=== PATIENT | male | born 1945 | race Caucasian/White ===

== ENCOUNTER 2021-01-22 12:23 | Inpatient (IN) ==
[2021-01-22] MEDS ORDERED: SODIUM CHLORIDE 0.9% 500 ML IV STA (13:04)
[2021-01-22] MEDS ORDERED: ONDANSETRON INJ 2 MG/ML 2 ML VIAL IV STA (13:04)
[2021-01-22] MEDS: MoRPHine SULFATE 4 MG/ML 1 ML CARP\\VIAL IV PRN ×2 (13:25→14:39)
--- NOTE | 2021-01-22 13:28 | Emergency Department Note ---
Impression & Plan Intractable back pain, Acute left flank pain ED Provider Note NAME: WILVER BURCIAGA AGE: 75 SEX: M : 1945 ARRIVES VIA: Walk-In INFORMANT: Patient, ED PROVIDER(S): Parminder Montero DO CHIEF COMPLAINT: Flank pain HPI: The patient is a 75-year-old male who presented to the emergency department with his significant other for an evaluation of flank pain. The patient describes flank pain which has been ongoing for the last few weeks. The pain became much worse over the last 48 hours. He notices the pain mostly in his lef t flank into his left hip. He denies having any mid back pain. He denies having any recent trauma. The patient is a history of lumbar disc disease and thought that could be the cause of his symptoms. He denies having any fever. He denies having any dysuria or frequency. He denies having any hematuria. The patient does not have a history of kidney stones. He is not been seen by his family doctor. He was going to call his back specialist but his pain became worse so he presented to the emergency department today. ROS: See above HPI for pertinent positives & negatives. A total of 10 systems reviewed and were otherwise negative. PAST MEDICAL HISTORY: See Below PAST SURGICAL HISTORY: See Below FAMILY HISTORY: See Below SOCIAL HISTORY: See Below HOME MEDICATIONS: See Below ALLERGIES: See Below VITALS: See Below PHYSICAL EXAMINATION: GENERAL: The patient is awake and alert. The patient is very anxious appearing and appears to be uncomfortable. EYES: The conjunctivae are clear. The pupils are round and reactive. EARS, NOSE, MOUTH AND THROAT: The nose is without any evidence of any deformity. NECK: The neck is nontender and supple. RESPIRATORY: Normal respiratory effort is noted there is no evidence of wheezing rhonchi or rales CARDIOVASCULAR: Regular rate and rhythm noted there no murmurs rubs or gallops normal S1 normal S2. GASTROINTESTINAL: The abdomen is soft. Abdomen is nontender. BACK: No midline tenderness was noted. There was left CVA tenderness to percussion. Patient has decreased range of motion secondary to pain. MUSCULOSKELETAL/EXTREMITIES: There is no evidence of gross deformity full range of motion is noted in the hips and shoulders. SKIN: There is no obvious evidence of any rash. There are no petechiae, pallor or cyanosis noted. NEUROLOGIC: Patient is awake alert and oriented x3 strength is symmetric patellar reflexes are 2+ bilaterally MEDICAL DECISION MAKING: The patient is a 75-year-old male who presented to the emergency department for an evaluation of back pain. The patient had acute onset of left flank pain. He also appears to have some reproducible pain over the left flank as well as lumbar spine. The patient was neurologically intact. He does have a history of lumbar disc disease in the past. The patient was treated with IV pain medication in the emergency department. He was reevaluated multiple times. He continues to have very severe pain. For this reason I [facility] have agreed to evaluate the patient in the emergency department for further management and disposition. Triage Nursing notes reviewed. Prior medical records reviewed Vital Signs: reviewed and remarkable for hypertension and tachycardia. Differential diagnosis: Renal colic, UTI, appendicitis, diverticulitis, mesenteric ischemia, aortic pathology, infections, inflammatory bowel disease, PUD, biliary pathology, as well as other pathologies. ER treatment provided: See below Diagnostics interpreted by me: ECG: none Cardiac Monitoring: An order was placed for continuous cardiac monitoring. The monitor shows a rate 97 bpm with sinus rhythm. Laboratory studies: As stated above and show below. Imaging studies: See below Consultation(s): I discussed this patient with Janae crawford who [facility] will [facility] the patient. Past Med/Surg History Medical History CAD (coronary artery disease) Dyslipidemia HTN (hypertension) Surgical History History of carpal tunnel surgery History of cholecystectomy History of tonsillectomy S/P CABG x 2 S/P left knee arthroscopy Family History Mother Heart disease Social History Smoking Status: Former smoker Tobacco Type: Cigarettes Hx Alcohol Use: Yes Alcohol type: beer Alcohol Intake Frequency: 4 or More x per/Week Alcohol Intake Frequency Comment: 2 beers/day Hx Substance Use: No Preferred Language: Italian Communication Ability: Effective Brushing Operator Required: No Beliefs That Will Affect Care: None Current Living Situation: Spouse Other Information That Helps Us Care for You: No Feels Safe at Home: Yes Safety Concerns: Feels Safe At This Time Assistive Devices: Glasses Allergies Allergies Allergy/AdvReac Type Severity Reaction Status Date / Time No Known Allergies Allergy Unverified 01/22/21 15:15 Home Meds Home Medications Medication Instructions Recorded Confirmed amlodipine 10 mg tablet 10 mg PO QAM 01/22/21 01/22/21 aspirin 81 mg tablet 81 mg PO DAILY 01/22/21 01/22/21 calcium polycarbophil 625 mg 625 mg PO BID 01/22/21 01/22/21 tablet (Fiber Therapy (ca polycarbophil)) loratadine 10 mg tablet 10 mg PO QAM 01/22/21 01/22/21 metoprolol tartrate 100 mg tablet 50 mg PO BID 01/22/21 01/22/21 quinapril 40 mg tablet 40 mg PO QAM 01/22/21 01/22/21 rosuvastatin 40 mg tablet 40 mg PO HS 01/22/21 01/22/21 Results & Data (ED) Vital Signs Vital Signs - 24 hr 01/22/21 12:26 01/22/21 13:25 01/22/21 14:15 Temperature 36.4 C L Temperature Source Oral Pulse Rate 90 79 85 Pulse Rate [Bilateral Apical] 83 Pulse Rate [Right Finger] Pulse Rate from SpO2 Sensor 84 Pulse Rhythm Regular Regular Pulse Rhythm [Bilateral Apical] Regular Pulse Strength Normal Pulse Strength [Bilateral Apical] Normal Respiratory Rate 20 17 15 Respiratory Effort / Characteristics Non-Labored Spontaneous Non-Labored Spontaneous Respiratory Depth Normal Normal Respiratory Pattern Regular Regular Blood Pressure 172/90 H Blood Pressure [Right Arm] 152/83 H Blood Pressure Mean 117 Blood Pressure Mean [Right Arm] 106 Blood Pressure Position [Right Arm] Lying Pulse Oximetry 98 96 98 Oxygen Delivery Method Room Air Room Air Sepsis Recent Fever Within 48 Hours No Sepsis New/Unexplained Change in Mental Status N/A Sepsis Action Taken by Nursing No Action Required 01/22/21 14:38 01/22/21 15:00 01/22/21 16:00 Temperature Temperature Source Pulse Rate 89 90 Pulse Rate [Bilateral Apical] 87 Pulse Rate [Right Finger] Pulse Rate from SpO2 Sensor 89 90 Pulse Rhythm Pulse Rhythm [Bilateral Apical] Regular Pulse Strength Pulse Strength [Bilateral Apical] Normal Respiratory Rate 17 25 H 16 Respiratory Effort / Characteristics Non-Labored Spontaneous Respiratory Depth Normal Respiratory Pattern Blood Pressure 176/105 H 187/98 H Blood Pressure [Right Arm] 140/76 Blood Pressure Mean 128 127 Blood Pressure Mean [Right Arm] 97 Blood Pressure Position [Right Arm] Lying Pulse Oximetry 94 95 96 Oxygen Delivery Method Room Air Sepsis Recent Fever Within 48 Hours Sepsis New/Unexplained Change in Mental Status Sepsis Action Taken by Nursing 01/22/21 17:00 01/22/21 18:00 01/22/21 18:17 Temperature Temperature Source Pulse Rate 104 H 97 H Pulse Rate [Bilateral Apical] Pulse Rate [Right Finger] Pulse Rate from SpO2 Sensor Pulse Rhythm Pulse Rhythm [Bilateral Apical] Pulse Strength Pulse Strength [Bilateral Apical] Respiratory Rate 18 13 Respiratory Effort / Characteristics Respiratory Depth Respiratory Pattern Blood Pressure 150/85 H Blood Pressure [Right Arm] Blood Pressure Mean 106 Blood Pressure Mean [Right Arm] Blood Pressure Position [Right Arm] Pulse Oximetry 98 Oxygen Delivery Method Room Air Sepsis Recent Fever Within 48 Hours Sepsis New/Unexplained Change in Mental Status Sepsis Action Taken by Nursing 01/22/21 22:24 01/23/21 07:31 Temperature 36.6 C 36.6 C Temperature Source Oral Oral Pulse Rate Pulse Rate [Bilateral Apical] Pulse Rate [Right Finger] 89 105 H Pulse Rate from SpO2 Sensor Pulse Rhythm Pulse Rhythm [Bilateral Apical] Pulse Strength Pulse Strength [Bilateral Apical] Respiratory Rate 16 16 Respiratory Effort / Characteristics Respiratory Depth Normal Respiratory Pattern Blood Pressure Blood Pressure [Right Arm] 128/79 150/76 H Blood Pressure Mean Blood Pressure Mean [Right Arm] 95 100 Blood Pressure Position [Right Arm] Lying Semi-fowlers Pulse Oximetry 96 97 Oxygen Delivery Method Room Air Room Air Sepsis Recent Fever Within 48 Hours Sepsis New/Unexplained Change in Mental Status Sepsis Action Taken by [facility] Medications Current Medication List: was personally reviewed by me Laboratory Data Attestation: I reviewed the patient's lab results. Result diagrams: 01/23/21 05:35 01/23/21 05:35 Lab Results 01/22/21 01/22/21 01/22/21 Range/Units 13:25 13:25 15:07 WBC 8.65 (4.8-10.8) K/uL RBC 5.15 (4.7-6.1) M/uL Hgb 16.5 (14.0-18.0) g/dL Hct 45.2 (42-52) % MCV 87.8 (80-100) fL MCH 32.0 (25-34) pg MCHC 36.5 H (32-36) g/dL RDW Std Deviation 40.7 (36.4-46.3) fL RDW Coeff of Janae 12.6 (11.5-14.5) % Plt Count 219 (130-400) K/uL MPV 9.0 (7.4-10.4) fL Immature Gran % (Auto) 0.6 % Neut % (Auto) 78.0 % Lymph % (Auto) 13.5 % [place] % (Auto) 6.7 % Eos % (Auto) 0.7 % Baso % (Auto) 0.5 % Neut # (Auto) 6.75 H (1.4-6.5) K/uL Lymph # (Auto) 1.17 L (1.2-3.4) K/uL [place] # (Auto) 0.58 (0.11-0.59) K/uL Eos # (Auto) 0.06 (0-0.5) K/uL Baso # (Auto) 0.04 (0-0.2) K/uL Immature Gran # (Auto) 0.05 H (0.00-0.02) K/uL Sodium 134 L (136-145) mmol/L Potassium 3.7 (3.5-5.1) mmol/L Chloride 102 (98-107) mmol/L Carbon Dioxide 20 L (21-32) mmol/L Anion Gap 12.0 H (3-11) BUN 14 (7-18) mg/dl Creatinine 0.96 (0.6-1.4) mg/dl Est Cr Clr Drug Dosing 74.3 ml/min Est GFR ( Amer) 90.5 ml/min Est GFR (Non-Af Amer) 78.1 ml/min BUN/Creatinine Ratio 14.2 (10-20) Glucose 118 H (70-99) mg/dl Calcium 9.3 (8.5-10.1) mg/dl Total Bilirubin 1.7 H (0.2-1) mg/dl AST 19 (15-37) U/L ALT 31 (12-78) U/L Alkaline Phosphatase 69 (45-117) U/L Total Protein 8.1 (6.4-8.2) gm/dl Albumin 4.4 (3.4-5.0) gm/dl Globulin 3.7 (2.5-4.0) gm/dl Albumin/Globulin Ratio 1.2 (0.9-2) Lipase 90 (73-393) U/L Urine Color Yellow Urine Appearance Clear (Clear) Urine pH 7.0 (4.5-7.5) Ur Specific [place] 1.011 (1.000-1.030) Urine Protein Negative (Negative) Urine Glucose (UA) Negative (Negative) Urine Ketones 2+ H (Negative) Urine Blood Negative (Negative) Urine Nitrite Negative (Negative) Urine Bilirubin Negative (Negative) Urine Urobilinogen Negative (Negative) Ur Leukocyte Esterase Negative (Negative) COVID-19 Eval Order SARS-CoV-2 (PCR) (Negative) 01/22/21 01/22/21 01/23/21 Range/Units 16:01 16:01 05:35 WBC 6.28 (4.8-10.8) K/uL RBC 4.91 (4.7-6.1) M/uL Hgb 15.3 (14.0-18.0) g/dL Hct 42.5 (42-52) % MCV 86.6 (80-100) fL MCH 31.2 (25-34) pg MCHC 36.0 (32-36) g/dL RDW Std Deviation 40.4 (36.4-46.3) fL RDW Coeff of Janae 12.6 (11.5-14.5) % Plt Count 216 (130-400) K/uL MPV 8.7 (7.4-10.4) fL Immature Gran % (Auto) % Neut % (Auto) % Lymph % (Auto) % [place] % (Auto) % Eos % (Auto) % Baso % (Auto) % Neut # (Auto) (1.4-6.5) K/uL Lymph # (Auto) (1.2-3.4) K/uL [place] # (Auto) (0.11-0.59) K/uL Eos # (Auto) (0-0.5) K/uL Baso # (Auto) (0-0.2) K/uL Immature Gran # (Auto) (0.00-0.02) K/uL Sodium (136-145) mmol/L Potassium (3.5-5.1) mmol/L Chloride (98-107) mmol/L Carbon Dioxide (21-32) mmol/L Anion Gap (3-11) BUN (7-18) mg/dl Creatinine (0.6-1.4) mg/dl Est Cr Clr Drug Dosing ml/min Est GFR ( Amer) ml/min Est GFR (Non-Af Amer) ml/min BUN/Creatinine Ratio (10-20) Glucose (70-99) mg/dl Calcium (8.5-10.1) mg/dl Total Bilirubin (0.2-1) mg/dl AST (15-37) U/L ALT (12-78) U/L Alkaline Phosphatase (45-117) U/L Total Protein (6.4-8.2) gm/dl Albumin (3.4-5.0) gm/dl Globulin (2.5-4.0) gm/dl Albumin/Globulin Ratio (0.9-2) Lipase (73-393) U/L Urine Color Urine Appearance (Clear) Urine pH (4.5-7.5) Ur Specific [place] (1.000-1.030) Urine Protein (Negative) Urine Glucose (UA) (Negative) Urine Ketones (Negative) Urine Blood (Negative) Urine Nitrite (Negative) Urine Bilirubin (Negative) Urine Urobilinogen (Negative) Ur Leukocyte Esterase (Negative) COVID-19 Eval Order Covid19 at [facility] SARS-CoV-2 (PCR) NEGATIVE (Negative) 01/23/21 Range/Units 05:35 WBC (4.8-10.8) K/uL RBC (4.7-6.1) M/uL Hgb (14.0-18.0) g/dL Hct (42-52) % MCV (80-100) fL MCH (25-34) pg MCHC (32-36) g/dL RDW Std Deviation (36.4-46.3) fL RDW Coeff of Janae (11.5-14.5) % Plt Count (130-400) K/uL MPV (7.4-10.4) fL Immature Gran % (Auto) % Neut % (Auto) % Lymph % (Auto) % [place] % (Auto) % Eos % (Auto) % Baso % (Auto) % Neut # (Auto) (1.4-6.5) K/uL Lymph # (Auto) (1.2-3.4) K/uL [place] # (Auto) (0.11-0.59) K/uL Eos # (Auto) (0-0.5) K/uL Baso # (Auto) (0-0.2) K/uL Immature Gran # (Auto) (0.00-0.02) K/uL Sodium 133 L (136-145) mmol/L Potassium 4.2 (3.5-5.1) mmol/L Chloride 102 (98-107) mmol/L Carbon Dioxide 22 (21-32) mmol/L Anion Gap 9.0 (3-11) BUN 15 (7-18) mg/dl Creatinine 0.69 (0.6-1.4) mg/dl Est Cr Clr Drug Dosing 103.4 ml/min Est GFR ( Amer) 109.2 ml/min Est GFR (Non-Af Amer) 94.2 ml/min BUN/Creatinine Ratio 21.7 H (10-20) Glucose 126 H (70-99) mg/dl Calcium 8.4 L (8.5-10.1) mg/dl Total Bilirubin (0.2-1) mg/dl AST (15-37) U/L ALT (12-78) U/L Alkaline Phosphatase (45-117) U/L Total Protein (6.4-8.2) gm/dl Albumin (3.4-5.0) gm/dl Globulin (2.5-4.0) gm/dl Albumin/Globulin Ratio (0.9-2) Lipase (73-393) U/L Urine Color Urine Appearance (Clear) Urine pH (4.5-7.5) Ur Specific [place] (1.000-1.030) Urine Protein (Negative) Urine Glucose (UA) (Negative) Urine Ketones (Negative) Urine Blood (Negative) Urine Nitrite (Negative) Urine Bilirubin (Negative) Urine Urobilinogen (Negative) Ur Leukocyte Esterase (Negative) COVID-19 Eval Order SARS-CoV-2 (PCR) (Negative) Administered Medications Acetaminophen (Acetaminophen 325 Mg Tab) 650 mg PO Q6H MARLENY Stop: 02/21/21 18:59 Last Admin: 01/23/21 06:03 Dose: 650 mg Documented by: [id number] Admin: 01/23/21 00:28 Dose: 650 mg Documented by: [id number] Admin: 01/22/21 20:00 Dose: 650 mg Documented by: [id number] Diazepam (Diazepam 2 Mg Tablet) 2 mg PO BID PRN PRN Reason: pain Stop: 02/21/21 18:47 Last Admin: 01/22/21 20:51 Dose: 2 mg Documented by: [id number] Enoxaparin Sodium (Enoxaparin Inj 40 Mg/0.4 Ml Syr) 40 mg SQ Q24H MARLENY Stop: 02/21/21 18:59 Last Admin: 01/22/21 20:01 Dose: 40 mg Documented by: [id number] Oxycodone HCl (Oxycodone Hcl Ir 5 Mg Tab (Immediate Release)) 5 mg PO Q6H PRN PRN Reason: Pain Stop: 02/05/21 18:47 Last Admin: 01/22/21 23:08 Dose: 5 mg Documented by: [id number] Discontinued Medications Cyclobenzaprine HCl (Cyclobenzaprine Hcl 10 Mg Tab) 10 mg PO NOW STA Stop: 01/22/21 15:11 Last Admin: 01/22/21 15:13 Dose: 10 mg Documented by: [id number] Dexamethasone Sodium Phosphate (DexamethasonePf 10 Mg/Ml Vial) 10 mg IV NOW ONE Stop: 01/22/21 15:55 Last Admin: 01/22/21 16:00 Dose: 10 mg Documented by: [id number] Diazepam (Diazepam 2 Mg Tablet) 2 mg PO NOW ONE Stop: 01/22/21 16:42 Last Admin: 01/22/21 17:09 Dose: 2 mg Documented by: [id number] Hydromorphone HCl (Hydromorphone Inj 1 Mg/Ml Syringe) 1 mg IV Q15M PRN PRN Reason: Pain Stop: 02/05/21 15:09 Last Admin: 01/22/21 15:16 Dose: 1 mg Documented by: [id number] Sodium Chloride (Nss) 500 mls @ 999 mls/hr IV .Q31M STA Stop: 01/22/21 13:34 Last Infusion: 01/22/21 15:04 Dose: 0 mls/hr Documented by: [id number] Admin: 01/22/21 13:41 Dose: 999 mls/hr Documented by: [id number] Ketorolac Tromethamine (Ketorolac Tromethamine 15 Mg/Ml Vial) 15 mg IV NOW ONE Stop: 01/22/21 16:42 Last Admin: 01/22/21 17:09 Dose: 15 mg Documented by: [id number] Morphine Sulfate (Morphine Sulfate 4 Mg/Ml 1 Ml Carp\Vial) 4 mg IV Q15M PRN PRN Reason: Pain Stop: 02/05/21 13:03 Last Admin: 01/22/21 14:39 Dose: 4 mg Documented by: [id number] Admin: 01/22/21 13:25 Dose: 4 mg Documented by: [id number] Ondansetron HCl (Ondansetron Inj 2 Mg/Ml 2 Ml Vial) 4 mg IV NOW STA Stop: 01/22/21 13:05 Last Admin: 01/22/21 13:39 Dose: 4 mg Documented by: [id number] Imaging Data Radiologist's Impression: Lumbar Spine MRI 01/22/21 16:41 MR lumbar spine wo con CLINICAL HISTORY: intractable back pain. Left-sided low back pain COMPARISON: None. TECHNIQUE: Multiplanar multisequence images of the Lumbar Spine were performed without contrast. FINDINGS: There is evidence for an old anterior wedge deformity of the superior endplate of L5. However, there is mild subchondral marrow edema of the margin of the superior endplate with findings characteristic of a mild acute compression deformity superimposed on an old compression fracture. The heights of the remaining lumbar vertebral bodies are maintained. The vertebral bodies are in anatomic alignment. Homogeneous marrow signal is seen throughout the remainder of the lumbar spine with no other evidence for marrow edema or marrow replacement. T12-L1: The disc space height is maintained. There are no focal disc protrusions or extrusions identified. The thecal sac and epidural fat are maintained. The neural foramen are patent bilaterally. There is no evidence for nerve root encroachment. The facet joints are within normal limits. L1-2: The disc space height is maintained. There are no focal disc protrusions or extrusions identified. The thecal sac and epidural fat are maintained. The neural foramen are patent bilaterally. There is no evidence for nerve root encroachment. The facet joints are within normal limits. L2-3: There is mild disc space narrowing and disc desiccation with diffuse bulging of the annulus measuring 3 mm. There are no focal disc protrusions or extrusions identified. However, there is flattening of thecal sac anteriorly and asymmetric encroachment upon the left neural foramen when compared to the right. Thickening of ligamentum flavum is also present bilaterally and the combination of these findings produce mild to moderate central canal stenosis and left foraminal stenosis. However, no definite nerve root encroachment is seen within the neural foramen. Moderate hypertrophic facet joint disease is seen bilaterally. L3-4: There is mild disc space narrowing and disc desiccation with mild diffuse bulging of the annulus measuring 2 mm. There are no focal disc protrusions or extrusions identified. Only minimal flattening of thecal sac is seen anteriorly. The neural foramen are patent bilaterally. There is no evidence for nerve root encroachment. The facet joints are within normal limits. L4-5: There is mild disc space narrowing. There are no focal disc protrusions or extrusions identified. The thecal sac and epidural fat are maintained. The neural foramen are patent bilaterally. There is no evidence for nerve root encroachment. Mild to moderate hypertrophic facet joint disease is seen bilaterally. L5-S1: There is disc desiccation with mild central bulging of the annulus. There are no focal disc protrusions or extrusions identified. Due to the increased amount of epidural fat anterior to the thecal sac at this level, no encroachment upon the thecal sac is seen. There is moderate to marked hyper trophic facet joint disease seen bilaterally. There is mild encroachment upon the neural foramen bilaterally. However, no focal nerve root impingement is identified. 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 IMPRESSION: 1. 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 However, no focal nerve root impingement is seen within the neural foramen. 2. Bulging annuli are also seen at L3-for L4-5. 3. Hypertrophic facet joint disease is seen at the lower 2 disc space levels as well. ACT 112: Negative or not required by law. Electronically signed by: Brendan More M.D. 01/23/2021 10:14 AM Discharge Plan Visit Data Chief Complaint: Back Injury/Pain Stated Complaint: BACK PAIN ED Provider: Parminder Montero Discharge Problem: Intractable back pain, Acute left flank pain Patient Disposition: Admitted As Inpatient Discharge Instructions Interventions: ED Discharge Assessment Last Done: 01/22/21 18:17
[2021-01-22 13:38] LABS: Basophils # (auto) 0.04 K/uL (0-0.2); Basophils % (auto) 0.5 %; Eosinophils # (auto) 0.06 K/uL (0-0.5); Eosinophils % (auto) 0.7 %; Hematocrit (blood only) 45.2 % (42-52); Hemoglobin 16.5 g/dL (14.0-18.0); Immature Granulocytes # (auto) 0.05 K/uL (0.00-0.02); Immature Granulocytes % (auto) 0.6 %; Lymphocytes # (auto) 1.17 K/uL (1.2-3.4); Lymphocytes % (auto) 13.5 %; Mean Corpuscular Hgb Conc 36.5 g/dL (32-36); Mean Corpuscular Volume 87.8 fL (80-100); Monocytes # (auto) 0.58 K/uL (0.11-0.59); Monocytes % (auto) 6.7 %; Neutrophils # (auto) 6.75 K/uL (1.4-6.5); Platelet Count 219 K/uL (130-400); RDW Coefficient of Variation 12.6 % (11.5-14.5); RDW Standard Deviation 40.7 fL (36.4-46.3); Red Blood Count 5.15 M/uL (4.7-6.1); White Blood Count 8.65 K/uL (4.8-10.8)
[2021-01-22 13:55] LABS: Albumin Level 4.4 gm/dl (3.4-5.0); BUN Creatinine Ratio 14.2 (10-20); Calcium 9.3 mg/dl (8.5-10.1); Creatinine Clr Calc Pharmacy 74.3 ml/min; Est GFR (African American) 90.5 ml/min; Est GFR (Non-African American) 78.1 ml/min; Potassium 3.7 mmol/L (3.5-5.1)
[2021-01-22 13:58] LABS: Albumin Globulin Ratio 1.2 (0.9-2); Bilirubin,Total 1.7 mg/dl (0.2-1); Globulin 3.7 gm/dl (2.5-4.0); Total Protein 8.1 gm/dl (6.4-8.2)
--- NOTE | 2021-01-22 14:15 | CT Scan Report ---
CT OF THE ABDOMEN AND PELVIS WITHOUT CONTRAST CLINICAL HISTORY: Left flank pain. COMPARISON STUDY: No previous studies for comparison. TECHNIQUE: Axial images of the abdomen and pelvis were obtained without IV contrast. Images were revi ewed in the axial, sagittal, and coronal planes. Automated exposure control was utilized for the vitaliy dy. A dose lowering technique was utilized adhering to the principles of ALARA. FINDINGS: Visualized portions of the lower chest demonstrate right pleural thickening which contains calcifications. This is chronic. No pneumatosis, free air or portal venous gas is present. No renal, ureteral or bladder calculi are present. There is no hydronephrosis or hydroureter. Prostate is moder ately enlarged. Evaluation the remainder of the abdomen and pelvis is suboptimal on this unenhanced e xamination. There is no biliary ductal dilatation status post cholecystectomy. There is a splenule. U nenhanced images of the spleen, adrenal glands and pancreas are unremarkable. There is no peripancrea tic infiltration. There is no pancreatic ductal dilatation. Colonic diverticulosis is noted without e vidence for acute diverticulitis. There is no evidence for a bowel obstruction. Appendix is normal. T here is no lymphadenopathy or ascites. Concavity of the superior endplate of L5 with moderate loss of vertebral body height is likely chronic. Moderate multilevel degenerative changes within lumbar spin e are suboptimally assessed by CT. No acute lumbar spine fracture is identified. IMPRESSION: 1. No urinary calculi or hydronephrosis. 2. No acute process within the abdomen or pelvis on unenhanced exam. 3. Colonic diverticulosis without evidence for acute diverticulitis. ACT 112: Negative or not required by law. Electronically signed by: Govind Fleming M.D. 01/22/2021 2:14 PM
[2021-01-22] MEDS ORDERED: HYDROmorphone INJ 1 MG/ML SYRINGE IV PRN (15:10)
[2021-01-22] MEDS ORDERED: CYCLOBENZAPRINE HCL 10 MG TAB PO STA (15:10)
[2021-01-22 15:23] LABS: Appearance Urine Clear (Clear); Bilirubin Urine Negative (Negative); Blood Urine Negative (Negative); Color Urine Yellow; Glucose Urine UA Negative (Negative); Ketones Urine 2+ (Negative); Leukocyte Esterase Urine Negative (Negative); Nitrite Urine Negative (Negative); Protein Urine Negative (Negative); Specific Gravity Urine 1.011 (1.000-1.030); Urobilinogen Urine Negative (Negative)
[2021-01-22] MEDS ORDERED: dexAMETHasone**PF** 10 MG/ML VIAL IV ONE (15:54)
[2021-01-22] MEDS ORDERED: diazePAM 2 MG TABLET PO ONE (16:41)
[2021-01-22] MEDS ORDERED: KETOROLAC TROMETHAMINE 15 MG/ML VIAL IV ONE (16:41)
--- NOTE | 2021-01-22 17:38 | History & Physical Report ---
Date of Service January 22, 2021 Assessment & Plan (1) Intractable back pain: Plan: -Admit to [facility] -Patient presenting from home with reports of worsening left-sided low back pain over the past few weeks -In the ED, CT ABD/pelvis unremarkable for acute findings. Patient received multiple doses of pain medication and continues to have intractable pain. -No red flag symptoms -Lumbar spine MRI -Pending MRI results, Ortho vs. pain management consult -Pain control with scheduled Tylenol, PRN Valium and Toradol (giving doses now) and oxycodone (2) HTN (hypertension): Plan: -BP elevated, likely situational secondary to pain -Continue home doses of amlodipine, metoprolol, quinapril and reevaluate once pain has been controlled (3) CAD (coronary artery disease): Plan: -Appears stable, no reports of chest pain -Continue ASA, statin, beta-regine (4) DVT prophylaxis: Plan: -SQ Lovenox History of Present Illness Chief Complaint: Back pain Primary Care Provider: Conner Ceron MD 75-year-old male with PMH CAD s/p CABG x3 in 2001, HTN, dyslipidemia, and other problems to below who presents to the ED for evaluation of intractable back pain. Patient reports that he was working on the floor attempting to fix his pellet stove a few weeks ago, and the next morning he woke up with a left-sided low back pain. He reports pain has progressively gotten worse over the past few weeks. Reports some intermittent left calf and left foot tingling. Denies left lower extremity weakness. No difficulty with bowel or bladder function. Patient describes the pain as sharp and grabbing at times. He has been taking Tylenol without relief. Patient denies fevers and chills. No chest pain or shortness of breath. Denies lightheadedness, dizziness, diaphoresis, syncopal events. No abdominal pain, nausea, vomiting, diarrhea. Denies urinary symptoms. In the ED, CT ABD/pelvis is unremarkable for acute findings. Labs unremarkable. Patient was given p.o. cyclobenzaprine, IV dexamethasone 10 mg, IV Dilaudid 1 mg, IV morphine 4 mg x 2 doses, IV Zofran, IVF. Patient continues to have intractable pain. Allergies Allergy/AdvReac Type Severity Reaction Status Date / Time No Known Allergies Allergy Unverified 01/22/21 15:15 Home Medications Medication Instructions Recorded Confirmed Type amlodipine 10 mg tablet 10 mg PO QAM 01/22/21 01/22/21 History aspirin 81 mg tablet 81 mg PO DAILY 01/22/21 01/22/21 History calcium polycarbophil 625 mg 625 mg PO BID 01/22/21 01/22/21 History tablet (Fiber Therapy (ca polycarbophil)) loratadine 10 mg tablet 10 mg PO QAM 01/22/21 01/22/21 History metoprolol tartrate 100 mg tablet 50 mg PO BID 01/22/21 01/22/21 History quinapril 40 mg tablet 40 mg PO QAM 01/22/21 01/22/21 History rosuvastatin 40 mg tablet 40 mg PO HS 01/22/21 01/22/21 History Past Med/Surg History Medical History CAD (coronary artery disease) Dyslipidemia HTN (hypertension) Surgical History History of carpal tunnel surgery History of cholecystectomy History of tonsillectomy S/P CABG x 2 S/P left knee arthroscopy Family History Mother Heart disease Social History Smoking Status: Former smoker Tobacco Type: Cigarettes Hx Alcohol Use: Yes Alcohol type: beer Alcohol Intake Frequency: 4 or More x per/Week Alcohol Intake Frequency Comment: 2 beers/day Feels Safe at Home: Yes Review of Systems Review of Systems: ROS per HPI, all other systems reviewed and negative Physical Exam Constitutional: WD/WN, vitals as above Eyes: PERRL, conjunctivae normal, anicteric sclerae ENMT: external ear and nose normal, oropharynx normal Respiratory: normal respiratory effort, lungs clear to auscultation Cardiovascular: Rate/Rhythm: regular rate and regular rhythm Vessels: normal peripheral pulses Extremities: no edema Gastrointestinal (Abdomen): normal bowel sounds, soft, nontender, no hepatos plenomegaly Musculoskeletal: no cyanosis or clubbing, extremities motor strength 5/5 Tenderness over left SI joint Skin: no rashes, warm and dry Neurologic: PERRL, EOMI, accommodation nl, no face palsy, no dysarthria Psychiatric: A+Ox3, euthymic affect Results & Data Results & Data ([facility]) Vital Signs (Past 12 Hours) Vital Signs Temp Pulse Pulse Resp BP BP Pulse Ox 01/22/21 16:00 90 16 187/98 H 96 01/22/21 15:00 89 25 H 176/105 H 95 01/22/21 14:38 87 17 140/76 94 01/22/21 14:15 85 15 98 01/22/21 13:25 79 83 17 152/83 H 96 01/22/21 12:26 36.4 C L 90 20 172/90 H 98 Laboratory Results Short CBC 01/22/21 Range/Units 13:25 WBC 8.65 (4.8-10.8) K/uL Hgb 16.5 (14.0-18.0) g/dL Hct 45.2 (42-52) % Plt Count 219 (130-400) K/uL BMP 01/22/21 13:25 Sodium 134 L Potassium 3.7 Chloride 102 Carbon Dioxide 20 L BUN 14 Creatinine 0.96 Glucose 118 H Calcium 9.3 Liver Function 01/22/21 Range/Units 13:25 Total Bilirubin 1.7 H (0.2-1) mg/dl AST 19 (15-37) U/L ALT 31 (12-78) U/L Alkaline Phosphatase 69 (45-117) U/L Albumin 4.4 (3.4-5.0) gm/dl Urine 01/22/21 Range/Units 15:07 Urine Color Yellow Urine Appearance Clear (Clear) Urine pH 7.0 (4.5-7.5) Ur Specific [place] 1.011 (1.000-1.030) Urine Protein Negative (Negative) Urine Glucose (UA) Negative (Negative) Diagnostic Findings Abdomen/Pelvis CT 01/22/21 13:04 CT OF THE ABDOMEN AND PELVIS WITHOUT CONTRAST CLINICAL HISTORY: Left flank pain. COMPARISON STUDY: No previous studies for comparison. TECHNIQUE: Axial images of the abdomen and pelvis were obtained without IV contrast. Images were reviewed in the axial, sagittal, and coronal planes. Automated exposure control was utilized for the study. A dose lowering technique was utilized adhering to the principles of ALARA. FINDINGS: Visualized portions of the lower chest demonstrate right pleural thickening which contains calcifications. This is chronic. No pneumatosis, free air or portal venous gas is present. No renal, ureteral or bladder calculi are present. There is no hydronephrosis or hydroureter. Prostate is moderately enlarged. Evaluation the remainder of the abdomen and pelvis is suboptimal on this unenhanced examination. There is no biliary ductal dilatation status post cholecystectomy. There is a splenule. Unenhanced images of the spleen, adrenal glands and pancreas are unremarkable. There is no peripancreatic infiltration. There is no pancreatic ductal dilatation. Colonic diverticulosis is noted without evidence for acute diverticulitis. There is no evidence for a bowel obstruction. Appendix is normal. There is no lymphadenopathy or ascites. Concavity of the superior endplate of L5 with moderate loss of vertebral body height is likely chronic. Moderate multilevel degenerative changes within lumbar spine are suboptimally assessed by CT. No acute lumbar spine fracture is identified. IMPRESSION: 1. No urinary calculi or hydronephrosis. 2. No acute process within the abdomen or pelvis on unenhanced exam. 3. Colonic diverticulosis without evidence for acute diverticulitis. ACT 112: Negative or not required by law. Electronically signed by: Govind Fleming M.D. 01/22/2021 2:14 PM Code Status & VTE Plan VTE Prophylaxis Plan VTE Prophylaxis will be ordered: Yes Supervising Physician Co-Signing Physician Notes 75-year-old male with PMH of chronic low back pain, CAD s/p CABG x3 in 2001, HTN, dyslipidemia, and arthritis status post steroid injection into multiple joints presents to our ED 01/22 for evaluation of intractable back pain -ongoing for a month, worsening since last 1 week associated with occasional numbness in his left foot sole. Has tried Tylenol but not any NSAID. No problem with bowel or bladder, no recent trauma history. No fever. No history of cancer in self, smoked 12 to 14 years with an average of less than 1 packs a day, quit in 1981, consumes 2-3 beers daily since 47 years, with short period off abstinence. No use of recreational drugs. Patient advised to avoid alcohol cessation and its benefit. Will watch for any withdrawal symptoms. No history of withdrawal seizures in the past. Pain management, MRI lumbar spine. Resume home meds for hypertension, IV hydralazine as needed for SBP greater than 170 mmHg. Upon examination: GENERAL: Alert and oriented x3. NAD, on RA. HEENT: No pallor, no icterus. Pupils equal, round and reactive to light. Oral mucosa moist. NECK: No JVD, no neck masses. HEART: S1 and S2 heard. Regular rate and rhythm. Likely systolic murmur over aortic and pulmonic area, no gallop. RESPIRATORY SYSTEM: Normal AP diameter. No accessory muscle use. No wheezing, no crackles. ABDOMEN: Soft, bowel sounds present, nontender, no distention. CENTRAL NERVOUS SYSTEM: Alert and oriented x3. No facial droop. Speech is clear. Obeys simple commands. Moves extremities. EXTREMITIES: No edema, no erythema seen. Straight leg raise test: Negative Low back and left hip palpation: Some tenderness over posterior iliac crest. No costovertebral angle tenderness noted. I have seen and examined the patient and have discussed the case with the provider above. I agree with the assessment and plan as stated.
[2021-01-22] MEDS ORDERED: hydrALAZINE HCL 20 MG/ML VIAL IV PRN (17:48)
[2021-01-22] MEDS ORDERED: KETOROLAC TROMETHAMINE 15 MG/ML VIAL IV PRN (18:48)
[2021-01-22] MEDS ORDERED: oxyCODONE HCL IR 5 MG TAB (IMMEDIATE RELEASE) PO PRN (18:48)
[2021-01-22] MEDS ORDERED: ONDANSETRON INJ 2 MG/ML 2 ML VIAL IV PRN (18:48)
[2021-01-22] MEDS: ACETAMINOPHEN 325 MG TAB PO SCH (20:00)
[2021-01-22] MEDS: ENOXAPARIN INJ 40 MG/0.4 ML SYR SQ SCH (20:01)
[2021-01-22] MEDS: diazePAM 2 MG TABLET PO PRN (20:51)
[2021-01-23] MEDS: ACETAMINOPHEN 325 MG TAB PO SCH ×4 (00:28→19:31)
[2021-01-23 05:51] LABS: Hematocrit (blood only) 42.5 % (42-52); Hemoglobin 15.3 g/dL (14.0-18.0); Mean Corpuscular Hemoglobin 31.2 pg (25-34); Mean Corpuscular Volume 86.6 fL (80-100); Mean Platelet Volume 8.7 fL (7.4-10.4); Platelet Count 216 K/uL (130-400); RDW Coefficient of Variation 12.6 % (11.5-14.5); RDW Standard Deviation 40.4 fL (36.4-46.3); Red Blood Count 4.91 M/uL (4.7-6.1); White Blood Count 6.28 K/uL (4.8-10.8)
[2021-01-23 06:27] LABS: BUN Creatinine Ratio 21.7 (10-20); Calcium 8.4 mg/dl (8.5-10.1); Creatinine Clr Calc Pharmacy 103.4 ml/min; Est GFR (African American) 109.2 ml/min; Est GFR (Non-African American) 94.2 ml/min; Potassium 4.2 mmol/L (3.5-5.1)
--- NOTE | 2021-01-23 10:15 | Magnetic Resonance Report ---
MR lumbar spine wo con CLINICAL HISTORY: intractable back pain. Left-sided low back pain COMPARISON: None. TECHNIQUE: Multiplanar multisequence images of the Lumbar Spine were performed without contrast. FINDINGS: There is evidence for an old anterior wedge deformity of the superior endplate of L5. However, there is mild subchondral marrow edema of the margin of the superior endplate with findings characteristic of a mild acute compression deformity superimposed on an old compression fracture. The heights of the remaining lumbar vertebral bodies are maintained. The vertebral bodies are in anatomic alignment. Ho mogeneous marrow signal is seen throughout the remainder of the lumbar spine with no other evidence f or marrow edema or marrow replacement. T12-L1: The disc space height is maintained. There are no focal disc protrusions or extrusions ident ified. The thecal sac and epidural fat are maintained. The neural foramen are patent bilaterally. Th ere is no evidence for nerve root encroachment. The facet joints are within normal limits. L1-2: The disc space height is maintained. There are no focal disc protrusions or extrusions identi fied. The thecal sac and epidural fat are maintained. The neural foramen are patent bilaterally. The re is no evidence for nerve root encroachment. The facet joints are within normal limits. L2-3: There is mild disc space narrowing and disc desiccation with diffuse bulging of the annulus me asuring 3 mm. There are no focal disc protrusions or extrusions identified. However, there is liz ening of thecal sac anteriorly and asymmetric encroachment upon the left neural foramen when compared to the right. Thickening of ligamentum flavum is also present bilaterally and the combination of the se findings produce mild to moderate central canal stenosis and left foraminal stenosis. However, no definite nerve root encroachment is seen within the neural foramen. Moderate hypertrophic facet joint disease is seen bilaterally. L3-4: There is mild disc space narrowing and disc desiccation with mild diffuse bulging of the annul us measuring 2 mm. There are no focal disc protrusions or extrusions identified. Only minimal liz ening of thecal sac is seen anteriorly. The neural foramen are patent bilaterally. There is no eviden ce for nerve root encroachment. The facet joints are within normal limits. L4-5: There is mild disc space narrowing. There are no focal disc protrusions or extrusions identif ied. The thecal sac and epidural fat are maintained. The neural foramen are patent bilaterally. Ther e is no evidence for nerve root encroachment. Mild to moderate hypertrophic facet joint disease is se en bilaterally. L5-S1: There is disc desiccation with mild central bulging of the annulus. There are no focal disc protrusions or extrusions identified. Due to the increased amount of epidural fat anterior to the th ecal sac at this level, no encroachment upon the thecal sac is seen. There is moderate to marked hype rtrophic facet joint disease seen bilaterally. There is mild encroachment upon the neural foramen maria elena aterally. However, no focal nerve root impingement is identified. 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 IMPRESSION: 1. 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 However, no focal nerve root impingement is seen wi thin the neural foramen. 2. Bulging annuli are also seen at L3-for L4-5. 3. Hypertrophic facet joint disease is seen at the lower 2 disc space levels as well. ACT 112: Negative or not required by law. Electronically signed by: Brendan More M.D. 01/23/2021 10:14 AM
--- NOTE | 2021-01-23 13:51 | Hospitalist Progress Note ---
Date of Service January 23, 2021 Assessment & Plan (1) Intractable back pain: Plan: -Patient presented from home with reports of worsening left-sided low back pain over the past few weeks -In the ED, CT ABD/pelvis unremarkable for acute findings. Patient received mu ltiple doses of pain medication and continued to have intractable pain. -No red flag symptoms -Pain improved today with scheduled Tylenol and as needed Valium, Toradol, oxycodone -Lumbar spine MRI results as noted below -Spine Ortho consult -Continue scheduled Tylenol, as needed Valium, Toradol, oxycodone (2) HTN (hypertension): Plan: -BP elevated on presentation likely situational secondary to pain - now improved -Continue home doses of amlodipine, metoprolol, quinapril -As needed hydralazine ordered, no doses required (3) CAD (coronary artery disease): Plan: -Appears stable, no reports of chest pain -Continue ASA, statin, beta-regine (4) DVT prophylaxis: Plan: -SQ Lovenox Admission and Anticipated Discharge Date Admission Date: January 23, 2021 Supervising Physician Co-Signing Physician Notes 75-year-old male with PMH of chronic low back pain, CAD s/p CABG x3 in 2001, HTN, dyslipidemia, and arthritis status post steroid injection into multiple joints presents to our ED 01/22 for evaluation of intractable back pain -ongoing for a month, worsening since last 1 week associated with occasional numbness in his left foot sole. Has tried Tylenol but not any NSAID. No problem with bowel or bladder, no recent trauma history. No fever. No history of cancer in self, smoked 12 to 14 years with an average of less than 1 packs a day, quit in 1981, consumes 2-3 beers daily since 47 years, with short period of abstinence. No u se of recreational drugs. Patient advised to avoid alcohol cessation and its benefit. Will watch for any withdrawal symptoms. No history of withdrawal seizures in the past. 01/23 MRI lumbar spine showed degenerative disc and degenerative facet joint disease at L2-3 with mild to moderate central canal stenosis and asymmetric left foraminal stenosis. Continue pain management, await orthopedic consult. Upon examination: GENERAL: Alert and oriented x3. NAD, on RA. HEENT: No pallor, no icterus. Pupils equal, round and reactive to light. Oral mucosa moist. NECK: No JVD, no neck masses. HEART: S1 and S2 heard. Regular rate and rhythm. Likely systolic murmur over aortic and pulmonic area, no gallop. RESPIRATORY SYSTEM: Normal AP diameter. No accessory muscle use. No wheezing, no crackles. ABDOMEN: Soft, bowel sounds present, nontender, no distention. CENTRAL NERVOUS SYSTEM: Alert and oriented x3. No facial droop. Speech is clear. Obeys simple commands. Moves extremities. EXTREMITIES: No edema, no erythema seen. Straight leg raise test: Negative Low back and left hip palpation: Some tenderness over posterior iliac crest. Not clear-cut tenderness. No costovertebral angle tenderness noted. I have seen and examined the patient and have discussed the case with the provider above. I agree with the assessment and plan as stated. Subjective Patient seen examined. Follow-up for intractable back pain Patient reports improvement in back pain since yesterday. Able to stand at the bedside and use a urinal. Denies lower extremity weakness, numbness, tingling. No bowel or bladder dysfunction. Denies chest pain or shortness of breath. No abdominal pain or nausea. Physical Exam Constitutional: WD/WN, vitals as above no acute distress Respiratory: normal respiratory effort, lungs clear to auscultation Cardiovascular: Rate/Rhythm: regular rate and regular rhythm Vessels: normal peripheral pulses Extremities: no edema Gastrointestinal (Abdomen): Percussion/Palpation: abdomen soft; abdomen nontender Musculoskeletal: no cyanosis or clubbing, extremities motor strength 5/5 No point tenderness noted in the lower back Skin: no rashes, warm and dry Neurologic: no focal motor deficits Results & Data Results & Data ([facility]) Vital Signs (Past 12 Hours) Vital Signs Temp Pulse Resp BP Pulse Ox 01/23/21 07:31 36.6 C 105 H 16 150/76 H 97 Laboratory Results Short CBC 01/23/21 Range/Units 05:35 WBC 6.28 (4.8-10.8) K/uL Hgb 15.3 (14.0-18.0) g/dL Hct 42.5 (42-52) % Plt Count 216 (130-400) K/uL BMP 01/22/21 01/23/21 13:25 05:35 Sodium 134 L 133 L Potassium 3.7 4.2 Chloride 102 102 Carbon Dioxide 20 L 22 BUN 14 15 Creatinine 0.96 0.69 Glucose 118 H 126 H Calcium 9.3 8.4 L Liver Function 01/22/21 Range/Units 13:25 Total Bilirubin 1.7 H (0.2-1) mg/dl AST 19 (15-37) U/L ALT 31 (12-78) U/L Alkaline Phosphatase 69 (45-117) U/L Albumin 4.4 (3.4-5.0) gm/dl Urine 01/22/21 Range/Units 15:07 Urine Color Yellow Urine Appearance Clear (Clear) Urine pH 7.0 (4.5-7.5) Ur Specific [place] 1.011 (1.000-1.030) Urine Protein Negative (Negative) Urine Glucose (UA) Negative (Negative) Diagnostic Findings Lumbar Spine MRI 01/22/21 16:41 MR lumbar spine wo con CLINICAL HISTORY: intractable back pain. Left-sided low back pain COMPARISON: None. TECHNIQUE: Multiplanar multisequence images of the Lumbar Spine were performed without contrast. FINDINGS: There is evidence for an old anterior wedge deformity of the superior endplate of L5. However, there is mild subchondral marrow edema of the margin of the superior endplate with findings characteristic of a mild acute compression deformity superimposed on an old compression fracture. The heights of the remaining lumbar vertebral bodies are maintained. The vertebral bodies are in anatomic alignment. Homogeneous marrow signal is seen throughout the remainder of the lumbar spine with no other evidence for marrow edema or marrow replacement. T12-L1: The disc space height is maintained. There are no focal disc protrusions or extrusions identified. The thecal sac and epidural fat are maintained. The neural foramen are patent bilaterally. There is no evidence for nerve root encroachment. The facet joints are within normal limits. L1-2: The disc space height is maintained. There are no focal disc protrusions or extrusions identified. The thecal sac and epidural fat are maintained. The neural foramen are patent bilaterally. There is no evidence for nerve root encroachment. The facet joints are within normal limits. L2-3: There is mild disc space narrowing and disc desiccation with diffuse bulging of the annulus measuring 3 mm. There are no focal disc protrusions or extrusions identified. However, there is flattening of thecal sac anteriorly and asymmetric encroachment upon the left neural foramen when compared to the right. Thickening of ligamentum flavum is also present bilaterally and the combination of these findings produce mild to moderate central canal stenosis and left foraminal stenosis. However, no definite nerve root encroachment is seen within the neural foramen. Moderate hypertrophic facet joint disease is seen bilaterally. L3-4: There is mild disc space narrowing and disc desiccation with mild diffuse bulging of the annulus measuring 2 mm. There are no focal disc protrusions or extrusions identified. Only minimal flattening of thecal sac is seen anteriorly. The neural foramen are patent bilaterally. There is no evidence for nerve root encroachment. The facet joints are within normal limits. L4-5: There is mild disc space narrowing. There are no focal disc protrusions or extrusions identified. The thecal sac and epidural fat are maintained. The neural foramen are patent bilaterally. There is no evidence for nerve root encroachment. Mild to moderate hypertrophic facet joint disease is seen b ilaterally. L5-S1: There is disc desiccation with mild central bulging of the annulus. There are no focal disc protrusions or extrusions identified. Due to the increased amount of epidural fat anterior to the thecal sac at this level, no encroachment upon the thecal sac is seen. There is moderate to marked hypertrophic facet joint disease seen bilaterally. There is mild encroachment upon the neural foramen bilaterally. However, no focal nerve root impingement is identified. 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 IMPRESSION: 1. 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 However, no focal nerve root impingement is seen within the neural foramen. 2. Bulging annuli are also seen at L3-for L4-5. 3. Hypertrophic facet joint disease is seen at the lower 2 disc space levels as well. ACT 112: Negative or not required by law. Electronically signed by: Brendan More M.D. 01/23/2021 10:14 AM
[2021-01-23] MEDS: amLODIPine BESYLATE 5 MG TAB PO SCH (17:42)
[2021-01-23] MEDS: ENOXAPARIN INJ 40 MG/0.4 ML SYR SQ SCH (19:31)
[2021-01-23] MEDS: METOPROLOL TARTRATE 50 MG TAB PO SCH (20:28)
[2021-01-23] MEDS ORDERED: ROSUVASTATIN CALCIUM 20 MG TAB PO SCH (21:00)
[2021-01-23] MEDS: diazePAM 2 MG TABLET PO PRN (22:18)
[2021-01-24] MEDS: ACETAMINOPHEN 325 MG TAB PO SCH ×3 (00:45→06:39)
[2021-01-24 07:01] LABS: BUN Creatinine Ratio 27.3 (10-20); Calcium 8.1 mg/dl (8.5-10.1); Creatinine Clr Calc Pharmacy 97.7 ml/min; Est GFR (African American) 106.7 ml/min; Potassium 3.6 mmol/L (3.5-5.1)
[2021-01-24] MEDS ORDERED: traMADol HCL 50 MG TABLET PO PRN (08:04)
--- NOTE | 2021-01-24 08:16 | Orthopedic Consultation ---
Date of Consultation January 24, 2021 Assessment & Plan (1) Acute left flank pain: At this time I suspect it is significant strain sprain from L1. MRI demonstrates no evidence of neural encroachment age-appropriate changes to lumbar spine. Recommend outpatient physical therapy he may follow-up in our office in the next few weeks in [place]. History of Present Illness Reason for Consultation: Back pain Attending Physician: Alley Price MD History of Present Illness This a very pleasant 75-year-old male who describes a history of chronic persistent intermittent back pain. He states that a marked exacerbation of symptoms Saturday. He believes it was after he was helping his son-in-law move it to your Saturday. His pain is in the left flank does not radiate into the buttock. Does not sound radicular. Denies any bowel bladder changes denies any Allergies Allergy/AdvReac Type Severity Reaction Status Date / Time No Known Allergies Allergy Unverified 01/22/21 15:15 Home Medications Medication Instructions Recorded Confirmed Type amlodipine 10 mg tablet 10 mg PO QAM 01/22/21 01/22/21 History aspirin 81 mg tablet 81 mg PO DAILY 01/22/21 01/22/21 History calcium polycarbophil 625 mg 625 mg PO BID 01/22/21 01/22/21 History tablet (Fiber Therapy (ca polycarbophil)) loratadine 10 mg tablet 10 mg PO QAM 01/22/21 01/22/21 History metoprolol tartrate 100 mg tablet 50 mg PO BID 01/22/21 01/22/21 History quinapril 40 mg tablet 40 mg PO QAM 01/22/21 01/22/21 History rosuvastatin 40 mg tablet 40 mg PO HS 01/22/21 01/22/21 History Patient History Medical History CAD (coronary artery disease) Dyslipidemia HTN (hypertension) Surgical History History of carpal tunnel surgery History of cholecystectomy History of tonsillectomy S/P CABG x 2 S/P left knee arthroscopy Family History Mother Heart disease Social History Smoking Status: Former smoker Tobacco Type: Cigarettes Hx Alcohol Use: Yes Alcohol type: beer Alcohol Intake Frequency: 4 or More x per/Week Alcohol Intake Frequency Comment: 2 beers/day Hx Substance Use: No Preferred Language: Congolese Communication Ability: Effective Staff Nuclear Medicine Technologist Required: No Beliefs That Will Affect Care: None marital status: Current Living Situation: Spouse Other Information That Helps Us Care for You: No Feels Safe at Home: Yes Safety Concerns: Feels Safe At This Time Assistive Devices: Glasses Physical Exam Physical Exam: On exam he is able to stand and ambulate about the room in a steady gait. He can walk on his toes and heels. Can forward flex and touch his toes. I am unable to elicit any significant discomfort with palpation of the quadratus lumborum multifidus the SI joints orthostatic notch region. Sensory appears to be symmetric and intact. Results & Data ([facility]) Vital Signs (Past 12 Hours) Vital Signs Temp Pulse Resp BP Pulse Ox 01/24/21 07:08 36.5 C 69 16 128/73 94 01/23/21 22:14 36.7 C 65 15 123/75 95 01/23/21 20:26 77 129/73 94
[2021-01-24] MEDS ORDERED: ENALAPRIL MALEATE 10 MG TAB PO SCH (09:00)
[2021-01-24] MEDS ORDERED: ASPIRIN 81 MG ECTAB PO SCH (09:00)
[2021-01-24] MEDS: METOPROLOL TARTRATE 50 MG TAB PO SCH (09:10)
[2021-01-24] MEDS: amLODIPine BESYLATE 5 MG TAB PO SCH (09:11)
--- NOTE | 2021-01-24 15:01 | Discharge Summary ---
Date of Service January 24, 2021 Admission HPI Per Admitting Provider 75-year-old male with PMH CAD s/p CABG x3 in 2001, HTN, dyslipidemia, and other problems to below who presents to the ED for evaluation of intractable back pain. Patient reports that he was working on the floor attempting to fix his pellet stove a few weeks ago, and the next morning he woke up with a left-sided low back pain. He reports pain has progressively gotten worse over the past few weeks. Reports some intermittent left calf and left foot tingling. Denies left lower extremity weakness. No difficulty with bowel or bladder function. Patient describes the pain as sharp and grabbing at times. He has been taking Tylenol without relief. Patient denies fevers and chills. No chest pain or shortness of breath. Denies lightheadedness, dizziness, diaphoresis, syncopal events. No abdominal pain, nausea, vomiting, diarrhea. Denies urinary symptoms. In the ED, CT ABD/pelvis is unremarkable for acute findings. Labs unremarkable. Patient was given p.o. cyclobenzaprine, IV dexamethasone 10 mg, IV Dilaudid 1 mg, IV morphine 4 mg x 2 doses, IV Zofran, IVF. Patient continues to have intractable pain. Admission Exam Per Admitting Provider Constitutional: WD/WN, vitals as above Eyes: PERRL, conjunctivae normal, anicteric sclerae ENMT: external ear and nose normal, oropharynx normal Respiratory: normal respiratory effort, lungs clear to auscultation Cardiovascular: Rate/Rhythm: regular rate and regular rhythm Vessels: normal peripheral pulses Extremities: no edema Gastrointestinal (Abdomen): normal bowel sounds, soft, nontender, no hepatosplenomegaly Musculoskeletal: no cyanosis or clubbing, extremities motor strength 5/5 Tenderness over left SI joint Skin: no rashes, warm and dry Neurologic: PERRL, EOMI, accommodation nl, no face palsy, no dysarthria Psychiatric: A+Ox3, euthymic affect Principal Diagnosis Lumbar back strain Discharge Exam Constitutional no acute distress Patient sitting at the edge of the bed, able to stand independently Respiratory normal respiratory effort, lungs clear to auscultation Cardiovascular Rate/Rhythm: regular rate and regular rhythm Vessels: normal peripheral pulses Extremities: no edema Gastrointestinal (Abdomen) Percussion/Palpation: abdomen soft; abdomen nontender Musculoskeletal No further lumbar back tenderness, strength strong and equal BLE, patient able to stand independently Skin no rashes, warm and dry Neurologic moves all extremities; no focal motor deficits Psychiatric A+Ox3, euthymic affect Discharge Data Allergies Allergy/AdvReac Type Severity Reaction Status Date / Time No Known Allergies Allergy Unverified 01/22/21 15:[address] Sosa, spine orthopedics Ordered Studies 01/22/2021 CT ABD/pelvis IMPRESSION: 1. No urinary calculi or hydronephrosis. 2. No acute process within the abdomen or pelvis on unenhanced exam. 3. Colonic diverticulosis without evidence for acute diverticulitis. 01/22/2021 lumbar spine MRI IMPRESSION: 1. 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 However, no focal nerve root impingement is seen within the neural foramen. 2. Bulging annuli are also seen at L3-for L4-5. 3. Hypertrophic facet joint disease is seen at the lower 2 disc space levels as well. Hospital Course (1) Intractable back pain: -Patient presented from home with reports of worsening left-sided low back pain over the past few weeks -In the ED, CT ABD/pelvis unremarkable for acute findings. Patient received multiple doses of pain medication and continued to have intractable pain. -No red flag symptoms -Pain improved with scheduled Tylenol and as needed Valium, Toradol, oxycodone -Lumbar spine MRI results as noted -Evaluated by spine orthopedics who does not recommend any intervention at this time, patient likely has a low back muscular strain. Discharge patient home on as needed tramadol and Flexeril. Patient to follow-up with orthopedics PA-C in the next 1 to 2 weeks. If not continuing to improve over the next day or so, patient will call and schedule outpatient PT. Patient was observed ambulating independently in his hospital room. (2) HTN (hypertension): -BP elevated on presentation likely situational secondary to pain -Continue home doses of amlodipine, metoprolol, quinapril -As needed hydralazine ordered, no doses required (3) CAD (coronary artery disease): -Appears stable, no reports of chest pain -Continue ASA, statin, beta-regine Total Time Total Time Spent Total Time Spent (In Minutes): 35 Discharge Plan Discharge Items Patient Disposition: Home - Self-Care Reason For Visit: INTRACTABLE BACK PAIN Discharge Diagnosis: Low Back Strain Activity: Per Instructions section Lifting: No more than 5 pounds Driving/Machine Use: Resume 3 days after discharge Non-emergency contact: Primary Care Provider Call non-emergency contact if: you have any medication questions, your pain is not controlled and you have a fever Follow-up/Referrals: Robert Ren PA-C [Physician Outreach Rep] - (Please call to schedule an appointment within the next one week.) Conner Ceron MD [Primary Care Provider] - 01/30/21 11:00 am Diet: Heart Healthy Addtl Attending Provider Instructions: You were admitted to the hospital for back pain. You had an MRI that showed some mild changes and disc bulging. You were seen by Dr. Sosa with spine orthopedics - no surgery or intervention is recommended at this time. You likely have a low back muscle strain. You are to follow up with Dr. Sosa's PA, Christo Ren. Phone number has been provided, please call the office to schedule an appointment within 1-2 weeks. You can also request to have therapy set up by calling that number as well. You will be given prescriptions for Tramadol (mild pain medication) and Flexeril (muscle relaxer). Use these medications with caution as they may cause drowsiness. You may continue to use Tylenol 650mg every 8 hours (no more than 3 gram/day) and also alternate ice and heat for pain relief. Follow up appointment has been made with your PCP. It was a pleasure taking care of you. If you need to reach a member of the [facility] Hospitalist team, call the hospital at [phone]. ALE Perez [facility] Hospitalist Pending Studies at Discharge: No Stand-Alone Forms: [facility] [employer], Opioid Pain Management, Smoking Cessation Medications and DC Order Prescriptions: New cyclobenzaprine 5 mg tablet 5 mg PO Q8H Qty: 14 RF: 0 tramadol 50 mg tablet 50 mg PO Q8H PRN (Reason: pain) Qty: 14 RF: 0 Continued metoprolol tartrate 100 mg tablet 50 mg PO BID RF: 0 quinapril 40 mg tablet 40 mg PO QAM RF: 0 amlodipine 10 mg tablet 10 mg PO QAM RF: 0 calcium polycarbophil [Fiber Therapy (ca polycarboph)] 625 mg Tablet 625 mg PO BID RF: 0 loratadine 10 mg Tablet 10 mg PO QAM RF: 0 aspirin 81 mg Tablet 81 mg PO DAILY RF: 0 rosuvastatin 40 mg tablet 40 mg PO HS RF: 0 Discharge Orders: Discharge Order (Routine); Ordered 01/24/21 Ordered By: Janae Rae/Other Patient Handouts: Back Safety Into & Out Bed, Back Safety: Bending, Back Safety: Lifting, Back Safety: Pushing and Pulling, Back Safety: Sleeping Positions, Back Safety: Sitting, Back Safety: Standing, Back Safety: Turning Admission Data Admit Date/Time: 01/23/21 11:07 Attending Provider: Alley Price Admit Provider: Alley Price Primary Care Provider: Conner Ceron Other Providers: Alley Price ; Isma Sosa Other Interventions: Discharge Summary Assessment (RN) Last Done: 01/24/21 10:40 Supervising Physician Co-Signing Physician Notes 75-year-old male with PMH of chronic low back pain, CAD s/p CABG x3 in 2001, HTN, dyslipidemia, and arthritis status post steroid injection into multiple joints presents to our ED 01/22 for evaluation of intractable back pain -ongoing for a month, worsening since last 1 week associated with occasional numbness in his left foot sole. Has tried Tylenol but not any NSAID. No problem with bowel or bladder, no recent trauma history. No fever. No history of cancer in self, smoked 12 to 14 years with an average of less than 1 packs a day, quit in 1981, consumes 2-3 beers daily since 45 years, with short period of abstinence. No use of recreational drugs. Patient advised to avoid alcohol cessation and its benefit. No withdrawal symptoms while in hospital. No history of withdrawal seizures in the past. 01/23 MRI lumbar spine showed degenerative disc and degenerative facet joint disease at L2-3 with mild to moderate central canal stenosis and asymmetric left foraminal stenosis. Continue pain management. Orthopedics evaluated the patient while inpatient. Patient being discharged with as needed tramadol and muscle relaxants. Patient to follow-up with orthopedics as an outpatient. Patient to follow-up with his primary care physician within a week time. Patient advised for the possibility of establishing care with pain management clinic down the road if pain persist to become intense. Upon examination: GENERAL: Alert and oriented x3. NAD, on RA. HEENT: No pallor, no icterus. Pupils equal, round and reactive to light. Oral mucosa moist. NECK: No JVD, no neck masses. HEART: S1 and S2 heard. Regular rate and rhythm. Likely systolic murmur over aortic and pulmonic area, no gallop. RESPIRATORY SYSTEM: Normal AP diameter. No accessory muscle use. No wheezing, no crackles. ABDOMEN: Soft, bowel sounds present, nontender, no distention. CENTRAL NERVOUS SYSTEM: Alert and oriented x3. No facial droop. Speech is clear. Obeys simple commands. Moves extremities. EXTREMITIES: No edema, no erythema seen. Straight leg raise test: Negative Low back and left hip palpation: Some tenderness over posterior iliac crest. Not clear-cut tenderness. No costovertebral angle tenderness noted. I have seen and examined the patient and have discussed the case with the provider above. I agree with the assessment and plan as stated.
== END 2021-01-24 11:54 | disposition home or self-care (01) | DRG 563 ==
LOC: 3E 12:23 → ED 12:23 → 3E 18:17